=== PATIENT | female | born 1965 | race Caucasian/White ===

== ENCOUNTER 2018-07-08 16:37 | Emergency (ER) | payer SELFPAY ==
[~2018-07-08] VITALS: Ht 157.5 cm; Wt 122.5 kg
[2018-07-08 16:47] VITALS: BP_SYST 160
--- NOTE | 2018-07-08 16:47 | NUR ---
Patient to ER bed 6 to gown for evaluation. Side rails up. Report given to Simon PAYAN.
--- NOTE | 2018-07-08 16:48 | NUR ---
JAZMYN Gonzáles examining patient.
--- NOTE | 2018-07-08 16:50 | NUR ---
Pt AAOx4 ambulated into ED c/o epigastric pain x 2 weeks accompanying diarrhea and nausea. Pt states she has hx of gastric ulcers which might contribute to the pain. No other injuries/complaints per pt/noted. Will continue to monitor.
[2018-07-08] MEDS ORDERED: NACL 0.9% 1,000 ML IV ONE (17:00)
[2018-07-08] MEDS ORDERED: ONDANSETRON HCL 4 MG/2 ML VIAL IVP ONE (17:00)
[2018-07-08] MEDS ORDERED: MORPHINE 4 MG/ML INJ. SYRINGE IVP ONE (17:00)
[2018-07-08 17:05] LABS: BILIRUBIN,URINE NEGATIVE (NEGATIVE); BLOOD, URINE TRACE (NEGATIVE); CLARITY/URINE CLEAR (CLEAR); COLOR,URINE YELLOW (YELLOW); GLUCOSE,URINE NEGATIVE (NEGATIVE); KETONES,URINE TRACE (NEGATIVE); LEUKOCYTE ESTERASE ,URINE NEGATIVE (NEGATIVE); NITRITE, URINE NEGATIVE (NEGATIVE); PROTEIN URINE NEGATIVE (NEGATIVE)
[2018-07-08 17:08] LABS: BASOPHILS # (AUTO) 0.1 K/uL (0.0-0.2); BASOPHILS % (AUTO) 0.6 % (0.0-2.0); EOSINOPHILS # (AUTO) 0.6 K/uL (0.0-0.4); EOSINOPHILS % (AUTO) 7.5 % (0.0-4.0); HEMATOCRIT 41.8 % (36-48); HEMOGLOBIN 13.6 g/dL (12.0-16.0); LYMPHOCYTES # (AUTO) 1.2 K/uL (1.0-5.5); LYMPHOCYTES % (AUTO) 14.1 % (20.5-51.5); MEAN CORPUSCULAR HEMOGLOBIN 28 pg (27-31); MEAN CORPUSCULAR HGB CONC 33 % (32-36); MEAN CORPUSCULAR VOLUME 85 fL (79.0-98.0); MONOCYTES # (AUTO) 0.3 K/uL (0.0-1.0); MONOCYTES % (AUTO) 3.8 % (1.7-9.3); NEUTROPHILS # (AUTO) 6.3 K/uL (1.8-7.7); PLATELET COUNT (AUTO) 294 K/uL (130-430); RED BLOOD CELL COUNT(AUTO) 4.91 MIL/uL (4.2-6.2); WHITE BLOOD COUNT (AUTO) 8.5 K/uL (4.8-10.8)
[2018-07-08 17:10] LABS: BACTERIA,URINE FEW /HPF (None Seen); MUCUS,URINE 2+ /LPF (None Seen); WBC,URINE 0-3 /HPF (0-3)
[2018-07-08 17:19] LABS: CALCIUM 9.3 mg/dL (8.4-11.0); CHLORIDE 104 mmol/L (98-107); CREATININE 0.57 mg/dL (0.55-1.30); GLUCOSE 112 mg/dL (70-99); POTASSIUM 3.8 mmol/L (3.5-5.1); SODIUM SERUM 138 mmol/L (136-145); UREA NITROGEN, BLOOD 16 mg/dL (8-21)
[2018-07-08 17:20] LABS: ANION GAP < 3 (5-15); GFR AFRICAN AMERICAN 142 mL/min (>90)
[2018-07-08 17:24] LABS: ALANINE AMINOTRANSFERASE 25 U/L (12-78); ALBUMIN 3.8 g/dL (3.4-4.8); ASPARTATE AMINOTRANSFERASE 18 U/L (10-37); LIPASE 118 U/L (73-393); TOTAL BILIRUBIN 0.3 mg/dL (0.0-1.0)
[2018-07-08] MEDS ORDERED: PANTOPRAZOLE SODIUM 40 MG/VIAL (PROTONIX) IVP ONE (18:00)
--- NOTE | 2018-07-08 18:09 | NUR ---
40 mg Protonix IVP administered. Pt tolerated well. No adverse reactions noted.
--- NOTE | 2018-07-08 18:23 | NUR ---
ER STEFFEN Gayle updating patient.
--- NOTE | 2018-07-08 18:47 | NUR ---
Patient given written and verbal discharge instructions and verbalizes understanding. ER [employer] Nalini discussed with patient the results and treatment provided. Patient in stable condition. ID arm band removed. IV catheter removed intact and dressing applied, no active bleeding. Rx of Bentyl, Omeprazole given. Patient educated on pain management and to follow up with PMD. Pain Scale 2. Nalini [employer] aware. Opportunity for questions provided and answered. Medication side effect fact sheet provided.
[2018-07-08 18:48] VITALS: BP_SYST 151
== END 2018-07-08 18:48 | disposition home or self-care (01) ==
LOC: SED 16:37
DX: R10.10 Upper abdominal pain, unspecified (principal); R03.0 Elevated blood-pressure reading, without diagnosis of hypertension; Z90.49 Acquired absence of other specified parts of digestive tract; Z88.6 Allergy status to analgesic agent
CPT/HCPCS: 36415; 74176; 80053; 81000; 83690; 85025; 96361; 96374; 96375; 99285; C9113; J2270; J2405; J7030

== ENCOUNTER 2023-01-17 15:27 | Emergency (ER) | payer SELFPAY ==
[~2023-01-17] VITALS: Ht 157.5 cm; Wt 113.4 kg
[~2023-01-17 15:27] MED LIST: DICY10CA13 PO
--- NOTE | 2023-01-17 15:30 | NUR ---
Patient to ER bed H1 to gown for evaluation. Side rails up.
[2023-01-17 15:31] VITALS: BP_SYST 171
--- NOTE | 2023-01-17 15:36 | NUR ---
ER at bedside examining patient.
[2023-01-17] MEDS ORDERED: KETOROLAC TROMETHAMINE 60 MG/2 ML VIAL IM ONE (15:45)
--- NOTE | 2023-01-17 16:15 | NUR ---
MEDICATED PER MD ORDERS.
[2023-01-17] MEDS ORDERED: MORPHINE 4 MG INJ. 4 MG/ML VIAL IM ONE (16:45)
--- NOTE | 2023-01-17 16:45 | NUR ---
PATIENT BROUGHT IN BY SELF COMPLAINING OF PAIN TO LEFT WRIST S/P FALL AT NOON. PAIN 07/09. NO OTHER COMPLAINTS/INJURIES PER PATIENT OR NOTED.
[2023-01-17] MEDS ORDERED: ACET1TAB93 PO (16:51)
--- NOTE | 2023-01-17 17:11 | NUR ---
I WAS BEDSIDE @1650 FOR SPLINT APPLICATION PER MD REQUEST. PT HAD 10/10 PAIN WITH GUARDING. THUMB SPICA SPLINT WAS REQUESTED PER MD. THE SPLINT WAS APPLIED AND SUCCESFULF FIRST ATTEMPT WITHOUT INCIDENT. CSM WAS WITHIN NORMAL LIMITS PRE AND POST PROCEDURE. POST APPLICATION PT PAIN WENT DOWN TO A 7/10.
[2023-01-17 17:37] VITALS: BP_SYST 134
--- NOTE | 2023-01-17 17:37 | NUR ---
Patient given written and verbal discharge instructions and verbalizes understanding. ER MD discussed with patient the results and treatment provided. Patient in stable condition. ID arm band removed. Rx of TYLENOL #3 given. Patient educated on pain management and to follow up with PMD. Pain Scale 6/10, Opportunity for questions provided and answered. Medication side effect fact sheet provided.
== END 2023-01-17 17:37 | disposition home or self-care (01) ==
LOC: SED 15:27 → MERGE 15:27 → SED 17:37
DX: S62.032A Displaced fracture of proximal third of navicular [scaphoid] bone of left wrist, initial encounter for closed fracture (principal); W19.XXXA Unspecified fall, initial encounter; X58.XXXA Exposure to other specified factors, initial encounter; Y93.89 Activity, other specified; Y92.89 Other specified places as the place of occurrence of the external cause; Y99.8 Other external cause status
CPT/HCPCS: 99284; 73110; 29125; 96372; J1885; J2270